=== PATIENT | female | born 1980 | race Caucasian/White ===

== ENCOUNTER 2020-12-18 18:08 | Emergency (ER) | payer OTHER ==
[~2020-12-18] VITALS: Ht 157.5 cm; Wt 72.6 kg
[2020-12-18 21:47] LABS: HEMOGLOBIN 10.6 gm/dl (12.3-15.3); RED BLOOD COUNT 4.8 M/UL (4.00-5.10); WHITE BLOOD COUNT 3.9 K/UL (4.5-11.0)
[2020-12-18] MEDS ORDERED: ZOFRAN ODT 4 MG4 MG PO (21:49)
[2020-12-18 22:02] LABS: BUN/CREATININE RATIO 10 (0-10)
== END 2020-12-18 22:27 | disposition home or self-care (01) ==
LOC: ER1 18:08
PROVIDERS: Physician Assistant Medical
DX: Z23 Encounter for immunization (principal); U07.1 COVID-19; Z90.49 Acquired absence of other specified parts of digestive tract; Z88.5 Allergy status to narcotic agent
CPT/HCPCS: 71045; 80053; 85025; 99283; M0243